=== PATIENT | male | born 1980 ===

== ENCOUNTER 2022-08-06 13:57 | Inpatient (IN) | payer OTHER ==
[2022-08-06 14:46] VITALS: BMI 21.9
[2022-08-06] MEDS ORDERED: ONDANSETRON *ODT* 4 MG TABLET SL PRN (19:08)
[2022-08-06] MEDS ORDERED: LOPERAMIDE HCL 2 MG CAPSULE PO PRN (19:08)
[2022-08-06] MEDS ORDERED: MAGNESIUM HYDROX 2400MG/30ML ORAL SUSPENSION 30 ML CUP PO PRN (19:08)
[2022-08-06] MEDS ORDERED: NALOXONE HCL (KLOXXADO) 8 MG SPRAY NS PRN (19:08)
[2022-08-06] MEDS ORDERED: BENZOCAINE/MENTHOL (CHLORASEPTIC ) LOZENGE MM PRN (19:08)
[2022-08-06] MEDS ORDERED: IBUPROFEN 600 MG TABLET (FP) PO PRN (19:08)
[2022-08-06] MEDS ORDERED: MAG HYDROX/AL HYDROX/SIMETH 30 ML UNIT-DOSE CUP PO PRN (19:08)
[2022-08-06] MEDS ORDERED: DICYCLOMINE HCL 10 MG CAPSULE PO PRN (19:08)
[2022-08-06] MEDS ORDERED: ACETAMINOPHEN 325 MG TABLET (FP) PO PRN ×2 (19:08)
[2022-08-06] MEDS ORDERED: BISMUTH SUBSALICYLATE 524 MG/30 ML PO PRN (19:08)
[2022-08-06] MEDS ORDERED: POLYETHYLENE GLYCOL (HEALTHYLAX) 3350 17 GM PACKET PO PRN (19:08)
[2022-08-06] MEDS ORDERED: chlordiazePOXIDE HCL 25 MG CAPSULE PO PRN (19:08)
[2022-08-06] MEDS ORDERED: IBUPROFEN 400 MG TABLET (FP) PO PRN (19:08)
[2022-08-06] MEDS: INSULIN (LEVEMIR) 100 UNITS/ML UNITS SQ SCH ×2 (20:40→21:19)
[2022-08-06] MEDS ORDERED: INSULIN (LEVEMIR) 100 UNITS/ML UNITS SQ SCH (22:00)
[2022-08-06] MEDS: THIAMINE HCL 100 MG TABLET (FP) PO SCH (22:19)
[2022-08-06] MEDS: MELATONIN 5 MG TABLETS PO SCH (22:19)
[2022-08-06] MEDS: chlordiazePOXIDE HCL 25 MG CAPSULE PO SCH (22:20)
[2022-08-07] MEDS: chlordiazePOXIDE HCL 25 MG CAPSULE PO SCH ×4 (05:51→22:16)
[2022-08-07] MEDS ORDERED: INSULIN SLIDING SCALE (NOVOLOG) 1 VIAL SQ SCH (07:00)
[2022-08-07] MEDS: INSULIN SLIDING SCALE (NOVOLOG) 1 VIAL SQ SCH ×3 (07:03→16:46)
[2022-08-07] MEDS ORDERED: ALBUTEROL SO4 HFA INHALER IH PRN (09:36)
[2022-08-07] MEDS: PRENATAL VITAMINS W/ FOLIC ACID TABLET (FP) PO SCH (10:18)
[2022-08-07] MEDS: hydrOXYzine PAMOATE 25 MG CAPSULE (FP) PO PRN (10:25)
[2022-08-07] MEDS: METHOCARBAMOL 500 MG TABLET PO PRN (10:25)
[2022-08-07] MEDS: LEVOTHYROXINE NA 25 MCG TABLET (FP) PO SCH (10:37)
[2022-08-07 13:16] LABS: HEMATOCRIT 34.9 % (35.4-49); HEMOGLOBIN 11.5 GM/dL (11.7-16.9); MCH 27.8 pg (25.7-33.7); MEAN PLT VOLUME 8.9 fl (7.5-11.1); PLATELET COUNT 269 10^3/uL (134-434); RBC 4.15 M/mm3 (4.00-5.60); RDW 14.6 % (11.9-15.9); WHITE BLOOD COUNT 6.3 K/mm3 (4.0-10.0)
[2022-08-07 13:23] LABS: CALCIUM 9.1 mg/dL (8.5-10.1)
[2022-08-07 13:24] LABS: ALBUMIN 3.6 g/dl (3.4-5.0); BLOOD UREA NITROGEN 12.4 mg/dL (7-18)
[2022-08-07 13:28] LABS: CREATININE 0.9 mg/dL (0.55-1.3)
[2022-08-07 13:29] LABS: BILIRUBIN,TOTAL 0.5 mg/dL (0.2-1); TOT PROT 7.1 g/dl (6.4-8.2)
[2022-08-07 14:49] LABS: HIV INTERPRETATION NEGATIVE (NEGATIVE)
[2022-08-07] MEDS ORDERED: BUPRENORPHINE/NALOXONE 8 MG/2 MG FILM PACKET SL ONE (15:00)
[2022-08-07] MEDS: MELATONIN 5 MG TABLETS PO SCH (22:16)
[2022-08-07] MEDS: THIAMINE HCL 100 MG TABLET (FP) PO SCH (22:16)
[2022-08-07] MEDS: INSULIN (LEVEMIR) 100 UNITS/ML UNITS SQ SCH (22:19)
[2022-08-08] MEDS: chlordiazePOXIDE HCL 25 MG CAPSULE PO SCH ×4 (05:56→22:15)
[2022-08-08] MEDS: INSULIN SLIDING SCALE (NOVOLOG) 1 VIAL SQ SCH ×3 (06:36→16:34)
[2022-08-08] MEDS: LEVOTHYROXINE NA 25 MCG TABLET (FP) PO SCH (06:37)
[2022-08-08] MEDS: PRENATAL VITAMINS W/ FOLIC ACID TABLET (FP) PO SCH (10:26)
[2022-08-08] MEDS: BUPRENORPHINE/NALOXONE 8 MG/2 MG FILM PACKET SL SCH (10:27)
[2022-08-08] MEDS: METHOCARBAMOL 500 MG TABLET PO PRN ×2 (11:23→22:15)
[2022-08-08] MEDS: hydrOXYzine PAMOATE 25 MG CAPSULE (FP) PO PRN ×2 (11:23→22:51)
[2022-08-08] MEDS: INSULIN (LEVEMIR) 100 UNITS/ML UNITS SQ SCH (21:31)
[2022-08-08] MEDS ORDERED: INSULIN (NOVOLOG) ASPART 100 UNITS/ML 10ML VIAL SQ ONE ×2 (21:35→22:01)
[2022-08-08] MEDS: THIAMINE HCL 100 MG TABLET (FP) PO SCH (22:14)
[2022-08-08] MEDS: MELATONIN 5 MG TABLETS PO SCH (22:14)
[2022-08-08] MEDS: NICOTINE POLACRILEX 2 MG GUM BUC PRN (22:17)
[2022-08-08] MEDS: NICOTINE 10 MG CARTRIDGE (INHALER) IH PRN (22:18)
[2022-08-09] MEDS ORDERED: chlordiazePOXIDE HCL 10 MG CAPSULE PO PRN
[2022-08-09] MEDS: chlordiazePOXIDE HCL 10 MG CAPSULE PO SCH ×4 (06:08→22:17)
[2022-08-09] MEDS: LEVOTHYROXINE NA 25 MCG TABLET (FP) PO SCH (06:08)
[2022-08-09] MEDS: INSULIN SLIDING SCALE (NOVOLOG) 1 VIAL SQ SCH ×4 (06:10→21:30)
[2022-08-09] MEDS ORDERED: INSULIN SLIDING SCALE (NOVOLOG) 1 VIAL SQ ONE (07:02)
[2022-08-09] MEDS: hydrOXYzine PAMOATE 25 MG CAPSULE (FP) PO PRN (09:22)
[2022-08-09] MEDS: BUPRENORPHINE/NALOXONE 8 MG/2 MG FILM PACKET SL SCH (10:10)
[2022-08-09] MEDS: PRENATAL VITAMINS W/ FOLIC ACID TABLET (FP) PO SCH (10:10)
[2022-08-09] MEDS: NICOTINE 10 MG CARTRIDGE (INHALER) IH PRN ×2 (10:32→21:22)
[2022-08-09] MEDS: NICOTINE POLACRILEX 2 MG GUM BUC PRN ×2 (10:33→21:44)
[2022-08-09] MEDS: INSULIN (LEVEMIR) 100 UNITS/ML UNITS SQ SCH (21:32)
[2022-08-09] MEDS: MELATONIN 5 MG TABLETS PO SCH (22:18)
[2022-08-09] MEDS: THIAMINE HCL 100 MG TABLET (FP) PO SCH (22:18)
[2022-08-10] MEDS: chlordiazePOXIDE HCL 10 MG CAPSULE PO SCH ×2 (05:38→17:17)
[2022-08-10] MEDS: NICOTINE 10 MG CARTRIDGE (INHALER) IH PRN ×3 (06:00→22:25)
[2022-08-10] MEDS: NICOTINE POLACRILEX 2 MG GUM BUC PRN ×3 (06:01→15:47)
[2022-08-10] MEDS: INSULIN SLIDING SCALE (NOVOLOG) 1 VIAL SQ SCH ×3 (06:19→17:19)
[2022-08-10] MEDS: LEVOTHYROXINE NA 25 MCG TABLET (FP) PO SCH (06:19)
[2022-08-10] MEDS: PRENATAL VITAMINS W/ FOLIC ACID TABLET (FP) PO SCH (10:41)
[2022-08-10] MEDS: BUPRENORPHINE/NALOXONE 8 MG/2 MG FILM PACKET SL SCH (10:41)
[2022-08-10] MEDS: METHOCARBAMOL 500 MG TABLET PO PRN (10:42)
[2022-08-10] MEDS ORDERED: INSULIN (NOVOLOG) ASPART 100 UNITS/ML 10ML VIAL SQ ONE (21:43)
[2022-08-10] MEDS: MELATONIN 5 MG TABLETS PO SCH (22:25)
[2022-08-10] MEDS: THIAMINE HCL 100 MG TABLET (FP) PO SCH (22:25)
[2022-08-10] MEDS: INSULIN (LEVEMIR) 100 UNITS/ML UNITS SQ SCH (22:27)
[2022-08-11] MEDS ORDERED: chlordiazePOXIDE HCL 10 MG CAPSULE PO ONE (05:00)
[2022-08-11] MEDS: LEVOTHYROXINE NA 25 MCG TABLET (FP) PO SCH (06:53)
[2022-08-11] MEDS: INSULIN SLIDING SCALE (NOVOLOG) 1 VIAL SQ SCH ×2 (06:53→11:35)
[2022-08-11] MEDS: PRENATAL VITAMINS W/ FOLIC ACID TABLET (FP) PO SCH (10:25)
[2022-08-11] MEDS: BUPRENORPHINE/NALOXONE 8 MG/2 MG FILM PACKET SL SCH (10:26)
[2022-08-11] MEDS: NICOTINE POLACRILEX 2 MG GUM BUC PRN (10:45)
[2022-08-11] MEDS: NICOTINE 10 MG CARTRIDGE (INHALER) IH PRN (10:47)
[2022-08-11 13:05] VITALS: BP 118/81; PULSE 89; RESP 18; TEMP 96.8
[2022-08-11] MEDS ORDERED: INSULIN (NOVOLOG) ASPART 100 UNITS/ML 10ML VIAL SQ SCH (16:30)
== END 2022-08-11 01:33 | disposition other institution (70) | DRG 773 ==
LOC: YASAS 13:57 → Y3N 19:34
PROVIDERS: ADMIT Allergy & Immunology; ATTEND Surgery
PROC: HZ2ZZZZ Detoxification Services for Substance Abuse Treatment (ICD-10-PCS; principal; 2022-08-06)
DX: F10.230 Alcohol dependence with withdrawal, uncomplicated (principal); F11.20 Opioid dependence, uncomplicated; F14.20 Cocaine dependence, uncomplicated; F17.210 Nicotine dependence, cigarettes, uncomplicated; F31.9 Bipolar disorder, unspecified; F41.9 Anxiety disorder, unspecified; E03.9 Hypothyroidism, unspecified; E10.65 Type 1 diabetes mellitus with hyperglycemia; Z79.4 Long term (current) use of insulin; J45.909 Unspecified asthma, uncomplicated; Z88.1 Allergy status to other antibiotic agents; Z91.013 Allergy to seafood
CPT/HCPCS: 36415; 80053; 82962; 84443; 85027; 86780; 87389; C9803-CS; U0003; U0005

== ENCOUNTER 2022-08-11 13:49 | Inpatient (IN) | payer OTHER ==
[2022-08-11] MEDS ORDERED: POLYETHYLENE GLYCOL (HEALTHYLAX) 3350 17 GM PACKET PO PRN (14:19)
[2022-08-11] MEDS ORDERED: BENZOCAINE/MENTHOL (CHLORASEPTIC ) LOZENGE MM PRN (14:19)
[2022-08-11] MEDS ORDERED: MAGNESIUM HYDROX 2400MG/30ML ORAL SUSPENSION 30 ML CUP PO PRN (14:19)
[2022-08-11] MEDS ORDERED: LOPERAMIDE HCL 2 MG CAPSULE PO PRN (14:19)
[2022-08-11] MEDS ORDERED: P-EPHED 60MG/TRIPROLIDI 2.5MG TABLET PO PRN (14:19)
[2022-08-11] MEDS ORDERED: ACETAMINOPHEN 325 MG TABLET (FP) PO PRN (14:19)
[2022-08-11] MEDS ORDERED: guaiFENesin 200 MG/10 ML 10 ML UNIT-DOSE CUPS PO PRN (14:19)
[2022-08-11] MEDS ORDERED: MAG HYDROX/AL HYDROX/SIMETH 30 ML UNIT-DOSE CUP PO PRN (14:19)
[2022-08-11] MEDS ORDERED: ALBUTEROL SO4 HFA INHALER IH PRN (14:20)
[2022-08-11] MEDS ORDERED: INSULIN (NOVOLOG) ASPART 100 UNITS/ML 10ML VIAL ONE ×2 (16:29→23:01)
[2022-08-11] MEDS ORDERED: INSULIN SLIDING SCALE (NOVOLOG) 1 VIAL SQ SCH (16:30)
[2022-08-11] MEDS ORDERED: INSULIN (NOVOLOG) ASPART 100 UNITS/ML 10ML VIAL SQ SCH (16:30)
[2022-08-11] MEDS: INSULIN SLIDING SCALE (NOVOLOG) 1 VIAL SQ SCH ×2 (16:54→21:07)
[2022-08-11] MEDS: INSULIN (NOVOLOG) ASPART 100 UNITS/ML 10ML VIAL SQ SCH (16:54)
[2022-08-11] MEDS: THIAMINE HCL 100 MG TABLET (FP) PO SCH (21:03)
[2022-08-11] MEDS: MELATONIN 5 MG TABLETS PO SCH (21:03)
[2022-08-11] MEDS: hydrOXYzine PAMOATE 25 MG CAPSULE (FP) PO PRN (21:05)
[2022-08-11] MEDS: INSULIN (LEVEMIR) 100 UNITS/ML UNITS SQ SCH (21:33)
[2022-08-11] MEDS ORDERED: INSULIN (LEVEMIR) 100 UNITS/ML UNITS SQ ONE (23:01)
[2022-08-12] MEDS: LEVOTHYROXINE NA 25 MCG TABLET (FP) PO SCH (06:17)
[2022-08-12] MEDS: INSULIN SLIDING SCALE (NOVOLOG) 1 VIAL SQ SCH ×4 (07:14→21:16)
[2022-08-12] MEDS: INSULIN (NOVOLOG) ASPART 100 UNITS/ML 10ML VIAL SQ SCH ×3 (07:15→18:03)
[2022-08-12] MEDS: PRENATAL VITAMINS W/ FOLIC ACID TABLET (FP) PO SCH (10:07)
[2022-08-12] MEDS: NICOTINE POLACRILEX 2 MG GUM BUC PRN ×2 (10:07→14:36)
[2022-08-12] MEDS: BUPRENORPHINE/NALOXONE 8 MG/2 MG FILM PACKET SL SCH (10:07)
[2022-08-12] MEDS: NICOTINE 7 MG/24 HOURS TOPICAL PATCH TD SCH (10:07)
[2022-08-12] MEDS: NICOTINE 10 MG CARTRIDGE (INHALER) IH PRN (10:08)
[2022-08-12] MEDS ORDERED: INSULIN (NOVOLOG) ASPART 100 UNITS/ML 10ML VIAL ONE (11:53)
[2022-08-12] MEDS: MELATONIN 5 MG TABLETS PO SCH (21:15)
[2022-08-12] MEDS: THIAMINE HCL 100 MG TABLET (FP) PO SCH (21:15)
[2022-08-12] MEDS: INSULIN (LEVEMIR) 100 UNITS/ML UNITS SQ SCH (21:16)
[2022-08-13] MEDS: LEVOTHYROXINE NA 25 MCG TABLET (FP) PO SCH (06:21)
[2022-08-13] MEDS: INSULIN SLIDING SCALE (NOVOLOG) 1 VIAL SQ SCH ×4 (06:22→21:19)
[2022-08-13] MEDS: INSULIN (NOVOLOG) ASPART 100 UNITS/ML 10ML VIAL SQ SCH ×3 (07:17→17:09)
[2022-08-13] MEDS: NICOTINE POLACRILEX 2 MG GUM BUC PRN ×2 (07:20→19:01)
[2022-08-13] MEDS: NICOTINE 10 MG CARTRIDGE (INHALER) IH PRN ×3 (07:20→17:40)
[2022-08-13] MEDS: hydrOXYzine PAMOATE 25 MG CAPSULE (FP) PO PRN ×2 (08:43→21:16)
[2022-08-13] MEDS: PRENATAL VITAMINS W/ FOLIC ACID TABLET (FP) PO SCH (09:53)
[2022-08-13] MEDS: BUPRENORPHINE/NALOXONE 8 MG/2 MG FILM PACKET SL SCH (09:54)
[2022-08-13] MEDS: NICOTINE 7 MG/24 HOURS TOPICAL PATCH TD SCH (09:54)
[2022-08-13] MEDS: IBUPROFEN 400 MG TABLET (FP) PO PRN (10:33)
[2022-08-13] MEDS ORDERED: INSULIN (NOVOLOG) ASPART 100 UNITS/ML 10ML VIAL ONE (16:22)
[2022-08-13] MEDS: MELATONIN 5 MG TABLETS PO SCH (21:16)
[2022-08-13] MEDS: THIAMINE HCL 100 MG TABLET (FP) PO SCH (21:16)
[2022-08-13] MEDS: INSULIN (LEVEMIR) 100 UNITS/ML UNITS SQ SCH (21:18)
[2022-08-13] MEDS ORDERED: INSULIN (LEVEMIR) 100 UNITS/ML UNITS SQ ONE (21:45)
[2022-08-14] MEDS: INSULIN SLIDING SCALE (NOVOLOG) 1 VIAL SQ SCH ×4 (06:21→21:22)
[2022-08-14] MEDS: LEVOTHYROXINE NA 25 MCG TABLET (FP) PO SCH (06:22)
[2022-08-14] MEDS: hydrOXYzine PAMOATE 25 MG CAPSULE (FP) PO PRN ×2 (06:22→21:19)
[2022-08-14] MEDS: INSULIN (NOVOLOG) ASPART 100 UNITS/ML 10ML VIAL SQ SCH ×3 (07:24→16:30)
[2022-08-14] MEDS: PRENATAL VITAMINS W/ FOLIC ACID TABLET (FP) PO SCH (09:06)
[2022-08-14] MEDS: BUPRENORPHINE/NALOXONE 8 MG/2 MG FILM PACKET SL SCH (09:06)
[2022-08-14] MEDS: NICOTINE 7 MG/24 HOURS TOPICAL PATCH TD SCH (09:06)
[2022-08-14] MEDS: NICOTINE 10 MG CARTRIDGE (INHALER) IH PRN (09:06)
[2022-08-14] MEDS ORDERED: NICOTINE 7 MG/24 HOURS TOPICAL PATCH TD PRN (09:13)
[2022-08-14] MEDS: NICOTINE POLACRILEX 2 MG GUM BUC PRN (13:45)
[2022-08-14] MEDS ORDERED: INSULIN (NOVOLOG) ASPART 100 UNITS/ML 10ML VIAL ONE (16:15)
[2022-08-14] MEDS: MELATONIN 5 MG TABLETS PO SCH (21:19)
[2022-08-14] MEDS: THIAMINE HCL 100 MG TABLET (FP) PO SCH (21:19)
[2022-08-14] MEDS: INSULIN (LEVEMIR) 100 UNITS/ML UNITS SQ SCH (21:22)
[2022-08-14] MEDS ORDERED: INSULIN (LEVEMIR) 100 UNITS/ML UNITS SQ ONE (21:51)
[2022-08-15] MEDS: hydrOXYzine PAMOATE 25 MG CAPSULE (FP) PO PRN ×3 (03:58→21:04)
[2022-08-15] MEDS: LEVOTHYROXINE NA 25 MCG TABLET (FP) PO SCH (07:02)
[2022-08-15] MEDS: INSULIN SLIDING SCALE (NOVOLOG) 1 VIAL SQ SCH ×4 (07:03→21:08)
[2022-08-15] MEDS: INSULIN (NOVOLOG) ASPART 100 UNITS/ML 10ML VIAL SQ SCH ×3 (07:03→16:47)
[2022-08-15] MEDS: NICOTINE POLACRILEX 2 MG GUM BUC PRN ×2 (07:05→15:48)
[2022-08-15] MEDS: PRENATAL VITAMINS W/ FOLIC ACID TABLET (FP) PO SCH (09:05)
[2022-08-15] MEDS: NICOTINE 10 MG CARTRIDGE (INHALER) IH PRN ×3 (09:05→21:08)
[2022-08-15] MEDS: BUPRENORPHINE/NALOXONE 8 MG/2 MG FILM PACKET SL SCH (09:05)
[2022-08-15] MEDS ORDERED: ARIPiprazole 10 MG TABLET PO ONE (11:43)
[2022-08-15] MEDS ORDERED: INSULIN (NOVOLOG) ASPART 100 UNITS/ML 10ML VIAL ONE (11:51)
[2022-08-15] MEDS ORDERED: ARIPiprazole 5 MG TABLET ONE (12:34)
[2022-08-15] MEDS: THIAMINE HCL 100 MG TABLET (FP) PO SCH (21:04)
[2022-08-15] MEDS: MELATONIN 5 MG TABLETS PO SCH (21:04)
[2022-08-15] MEDS: INSULIN (LEVEMIR) 100 UNITS/ML UNITS SQ SCH (21:08)
[2022-08-15] MEDS: MIRTAZAPINE 15 MG TABLET (FP) PO SCH (21:09)
[2022-08-15] MEDS ORDERED: INSULIN (LEVEMIR) 100 UNITS/ML UNITS SQ ONE (21:57)
[2022-08-16] MEDS: LEVOTHYROXINE NA 25 MCG TABLET (FP) PO SCH (06:32)
[2022-08-16] MEDS: INSULIN SLIDING SCALE (NOVOLOG) 1 VIAL SQ SCH ×4 (06:41→21:04)
[2022-08-16] MEDS: INSULIN (NOVOLOG) ASPART 100 UNITS/ML 10ML VIAL SQ SCH ×3 (07:51→17:23)
[2022-08-16] MEDS ORDERED: INSULIN (NOVOLOG) ASPART 100 UNITS/ML 10ML VIAL ONE ×3 (07:53→13:27)
[2022-08-16] MEDS: ARIPiprazole 10 MG TABLET PO SCH (09:53)
[2022-08-16] MEDS: BUPRENORPHINE/NALOXONE 8 MG/2 MG FILM PACKET SL SCH (09:53)
[2022-08-16] MEDS: PRENATAL VITAMINS W/ FOLIC ACID TABLET (FP) PO SCH (09:53)
[2022-08-16] MEDS: hydrOXYzine PAMOATE 25 MG CAPSULE (FP) PO PRN ×2 (09:53→21:03)
[2022-08-16] MEDS: NICOTINE 10 MG CARTRIDGE (INHALER) IH PRN ×3 (14:02→21:04)
[2022-08-16] MEDS: INSULIN (LEVEMIR) 100 UNITS/ML UNITS SQ SCH (21:02)
[2022-08-16] MEDS: THIAMINE HCL 100 MG TABLET (FP) PO SCH (21:03)
[2022-08-16] MEDS: MELATONIN 5 MG TABLETS PO SCH (21:03)
[2022-08-16] MEDS: MIRTAZAPINE 15 MG TABLET (FP) PO SCH (21:04)
[2022-08-17] MEDS: LEVOTHYROXINE NA 25 MCG TABLET (FP) PO SCH (06:38)
[2022-08-17] MEDS: NICOTINE 10 MG CARTRIDGE (INHALER) IH PRN ×2 (06:39→15:31)
[2022-08-17] MEDS: INSULIN SLIDING SCALE (NOVOLOG) 1 VIAL SQ SCH ×4 (07:12→21:34)
[2022-08-17] MEDS: INSULIN (NOVOLOG) ASPART 100 UNITS/ML 10ML VIAL SQ SCH ×3 (07:12→17:02)
[2022-08-17] MEDS ORDERED: INSULIN (NOVOLOG) ASPART 100 UNITS/ML 10ML VIAL ONE ×2 (08:48→12:57)
[2022-08-17] MEDS ORDERED: ARIPiprazole 5 MG TABLET ONE (08:48)
[2022-08-17] MEDS: BUPRENORPHINE/NALOXONE 8 MG/2 MG FILM PACKET SL SCH (09:25)
[2022-08-17] MEDS: hydrOXYzine PAMOATE 25 MG CAPSULE (FP) PO PRN ×2 (09:25→21:32)
[2022-08-17] MEDS: PRENATAL VITAMINS W/ FOLIC ACID TABLET (FP) PO SCH (09:25)
[2022-08-17] MEDS: ARIPiprazole 10 MG TABLET PO SCH (09:26)
[2022-08-17] MEDS: THIAMINE HCL 100 MG TABLET (FP) PO SCH (21:32)
[2022-08-17] MEDS: INSULIN (LEVEMIR) 100 UNITS/ML UNITS SQ SCH (21:32)
[2022-08-17] MEDS: MELATONIN 5 MG TABLETS PO SCH (21:32)
[2022-08-17] MEDS: MIRTAZAPINE 15 MG TABLET (FP) PO SCH (21:34)
[2022-08-18] MEDS: LEVOTHYROXINE NA 25 MCG TABLET (FP) PO SCH (06:28)
[2022-08-18] MEDS: hydrOXYzine PAMOATE 25 MG CAPSULE (FP) PO PRN ×3 (06:29→21:34)
[2022-08-18] MEDS ORDERED: INSULIN (NOVOLOG) ASPART 100 UNITS/ML 10ML VIAL ONE ×3 (06:31→21:43)
[2022-08-18] MEDS: INSULIN SLIDING SCALE (NOVOLOG) 1 VIAL SQ SCH ×4 (06:31→21:34)
[2022-08-18] MEDS: INSULIN (NOVOLOG) ASPART 100 UNITS/ML 10ML VIAL SQ SCH ×3 (07:01→16:37)
[2022-08-18] MEDS: NICOTINE 10 MG CARTRIDGE (INHALER) IH PRN ×3 (07:35→19:33)
[2022-08-18] MEDS: PRENATAL VITAMINS W/ FOLIC ACID TABLET (FP) PO SCH (08:59)
[2022-08-18] MEDS: ARIPiprazole 10 MG TABLET PO SCH (08:59)
[2022-08-18] MEDS: BUPRENORPHINE/NALOXONE 8 MG/2 MG FILM PACKET SL SCH (08:59)
[2022-08-18] MEDS: IBUPROFEN 400 MG TABLET (FP) PO PRN (10:08)
[2022-08-18] MEDS: NICOTINE POLACRILEX 2 MG GUM BUC PRN (15:40)
[2022-08-18] MEDS: MELATONIN 5 MG TABLETS PO SCH (21:31)
[2022-08-18] MEDS: THIAMINE HCL 100 MG TABLET (FP) PO SCH (21:31)
[2022-08-18] MEDS: INSULIN (LEVEMIR) 100 UNITS/ML UNITS SQ SCH (21:33)
[2022-08-18] MEDS: MIRTAZAPINE 15 MG TABLET (FP) PO SCH (21:40)
[2022-08-18] MEDS ORDERED: INSULIN (LEVEMIR) 100 UNITS/ML UNITS SQ ONE (21:43)
[2022-08-19] MEDS: LEVOTHYROXINE NA 25 MCG TABLET (FP) PO SCH (06:22)
[2022-08-19] MEDS: INSULIN SLIDING SCALE (NOVOLOG) 1 VIAL SQ SCH ×5 (06:28→21:57)
[2022-08-19] MEDS: hydrOXYzine PAMOATE 25 MG CAPSULE (FP) PO PRN ×2 (06:47→21:52)
[2022-08-19] MEDS: INSULIN (NOVOLOG) ASPART 100 UNITS/ML 10ML VIAL SQ SCH ×4 (07:35→16:42)
[2022-08-19] MEDS ORDERED: INSULIN (NOVOLOG) ASPART 100 UNITS/ML 10ML VIAL ONE ×2 (07:43→16:39)
[2022-08-19] MEDS ORDERED: ARIPiprazole 5 MG TABLET ONE (07:54)
[2022-08-19] MEDS: NICOTINE 10 MG CARTRIDGE (INHALER) IH PRN ×2 (08:50→20:12)
[2022-08-19] MEDS: ARIPiprazole 10 MG TABLET PO SCH (10:06)
[2022-08-19] MEDS: IBUPROFEN 400 MG TABLET (FP) PO PRN (10:08)
[2022-08-19] MEDS: PRENATAL VITAMINS W/ FOLIC ACID TABLET (FP) PO SCH (10:08)
[2022-08-19] MEDS: BUPRENORPHINE/NALOXONE 8 MG/2 MG FILM PACKET SL SCH (10:09)
[2022-08-19] MEDS: THIAMINE HCL 100 MG TABLET (FP) PO SCH (21:52)
[2022-08-19] MEDS: MIRTAZAPINE 15 MG TABLET (FP) PO SCH (21:53)
[2022-08-19] MEDS: MELATONIN 5 MG TABLETS PO SCH (21:53)
[2022-08-19] MEDS: INSULIN (LEVEMIR) 100 UNITS/ML UNITS SQ SCH (21:55)
[2022-08-20] MEDS: LEVOTHYROXINE NA 25 MCG TABLET (FP) PO SCH (06:13)
[2022-08-20] MEDS: INSULIN SLIDING SCALE (NOVOLOG) 1 VIAL SQ SCH ×4 (06:14→21:36)
[2022-08-20] MEDS: hydrOXYzine PAMOATE 25 MG CAPSULE (FP) PO PRN ×2 (06:48→21:33)
[2022-08-20] MEDS: INSULIN (NOVOLOG) ASPART 100 UNITS/ML 10ML VIAL SQ SCH ×4 (07:01→16:53)
[2022-08-20] MEDS: ARIPiprazole 10 MG TABLET PO SCH (10:03)
[2022-08-20] MEDS: BUPRENORPHINE/NALOXONE 8 MG/2 MG FILM PACKET SL SCH (10:03)
[2022-08-20] MEDS: PRENATAL VITAMINS W/ FOLIC ACID TABLET (FP) PO SCH (10:03)
[2022-08-20] MEDS: NICOTINE 10 MG CARTRIDGE (INHALER) IH PRN ×3 (11:40→21:36)
[2022-08-20] MEDS ORDERED: INSULIN (NOVOLOG) ASPART 100 UNITS/ML 10ML VIAL ONE ×3 (16:28→22:02)
[2022-08-20] MEDS: THIAMINE HCL 100 MG TABLET (FP) PO SCH (21:31)
[2022-08-20] MEDS: MIRTAZAPINE 15 MG TABLET (FP) PO SCH (21:33)
[2022-08-20] MEDS: MELATONIN 5 MG TABLETS PO SCH (21:34)
[2022-08-20] MEDS: INSULIN (LEVEMIR) 100 UNITS/ML UNITS SQ SCH (21:35)
[2022-08-21] MEDS: hydrOXYzine PAMOATE 25 MG CAPSULE (FP) PO PRN ×3 (06:14→21:25)
[2022-08-21] MEDS: NICOTINE 10 MG CARTRIDGE (INHALER) IH PRN ×3 (06:14→16:36)
[2022-08-21] MEDS: LEVOTHYROXINE NA 25 MCG TABLET (FP) PO SCH (06:14)
[2022-08-21] MEDS: INSULIN (NOVOLOG) ASPART 100 UNITS/ML 10ML VIAL SQ SCH ×3 (07:39→16:35)
[2022-08-21] MEDS: INSULIN SLIDING SCALE (NOVOLOG) 1 VIAL SQ SCH ×4 (07:39→21:27)
[2022-08-21] MEDS: ARIPiprazole 10 MG TABLET PO SCH (09:42)
[2022-08-21] MEDS: PRENATAL VITAMINS W/ FOLIC ACID TABLET (FP) PO SCH (09:42)
[2022-08-21] MEDS: BUPRENORPHINE/NALOXONE 4 MG/1 MG FILM PACKET SL SCH ×2 (09:42→21:24)
[2022-08-21] MEDS ORDERED: INSULIN (NOVOLOG) ASPART 100 UNITS/ML 10ML VIAL ONE ×3 (11:59→21:46)
[2022-08-21] MEDS: NICOTINE POLACRILEX 2 MG GUM BUC PRN (13:28)
[2022-08-21 14:19] LABS: HEMATOCRIT 36.8 % (35.4-49); HEMOGLOBIN 11.9 GM/dL (11.7-16.9); MCH 26.4 pg (25.7-33.7); MCHC 32.4 g/dl (32.0-35.9); MEAN CELL VOLUME 81.4 fl (80-96); PLATELET COUNT 272 10^3/uL (134-434); RBC 4.52 M/mm3 (4.00-5.60); RDW 14.6 % (11.9-15.9); WHITE BLOOD COUNT 8.5 K/mm3 (4.0-10.0)
[2022-08-21 14:28] LABS: INR 0.95 (0.83-1.09)
[2022-08-21 14:53] LABS: ALBUMIN 3.7 g/dl (3.4-5.0); BLOOD UREA NITROGEN 21.1 mg/dL (7-18); CALCIUM 9.2 mg/dL (8.5-10.1)
[2022-08-21 14:57] LABS: BILIRUBIN,TOTAL 0.4 mg/dL (0.2-1); CREATININE 0.8 mg/dL (0.55-1.3)
[2022-08-21 14:58] LABS: TOT PROT 7.7 g/dl (6.4-8.2)
[2022-08-21] MEDS: THIAMINE HCL 100 MG TABLET (FP) PO SCH (21:23)
[2022-08-21] MEDS: MELATONIN 5 MG TABLETS PO SCH (21:23)
[2022-08-21] MEDS: MIRTAZAPINE 15 MG TABLET (FP) PO SCH (21:24)
[2022-08-21] MEDS: INSULIN (LEVEMIR) 100 UNITS/ML UNITS SQ SCH (21:28)
[2022-08-21] MEDS ORDERED: INSULIN (LEVEMIR) 100 UNITS/ML UNITS SQ ONE (21:46)
[2022-08-22] MEDS: hydrOXYzine PAMOATE 25 MG CAPSULE (FP) PO PRN ×2 (03:57→21:15)
[2022-08-22] MEDS: LEVOTHYROXINE NA 25 MCG TABLET (FP) PO SCH (06:39)
[2022-08-22] MEDS: INSULIN SLIDING SCALE (NOVOLOG) 1 VIAL SQ SCH ×4 (06:40→21:18)
[2022-08-22] MEDS: INSULIN (NOVOLOG) ASPART 100 UNITS/ML 10ML VIAL SQ SCH ×3 (07:45→16:40)
[2022-08-22] MEDS ORDERED: INSULIN (NOVOLOG) ASPART 100 UNITS/ML 10ML VIAL ONE ×2 (07:46→22:18)
[2022-08-22] MEDS ORDERED: ARIPiprazole 5 MG TABLET ONE (08:36)
[2022-08-22] MEDS: ARIPiprazole 10 MG TABLET PO SCH (10:09)
[2022-08-22] MEDS: PRENATAL VITAMINS W/ FOLIC ACID TABLET (FP) PO SCH (10:10)
[2022-08-22] MEDS: BUPRENORPHINE/NALOXONE 4 MG/1 MG FILM PACKET SL SCH ×2 (10:11→21:18)
[2022-08-22] MEDS: IBUPROFEN 400 MG TABLET (FP) PO PRN (10:13)
[2022-08-22] MEDS: NICOTINE POLACRILEX 2 MG GUM BUC PRN ×2 (11:09→21:18)
[2022-08-22] MEDS: NICOTINE 10 MG CARTRIDGE (INHALER) IH PRN (15:41)
[2022-08-22] MEDS: MELATONIN 5 MG TABLETS PO SCH (21:14)
[2022-08-22] MEDS: THIAMINE HCL 100 MG TABLET (FP) PO SCH (21:14)
[2022-08-22] MEDS: MIRTAZAPINE 15 MG TABLET (FP) PO SCH (21:15)
[2022-08-22] MEDS: INSULIN (LEVEMIR) 100 UNITS/ML UNITS SQ SCH (21:16)
[2022-08-22] MEDS ORDERED: INSULIN (LEVEMIR) 100 UNITS/ML UNITS SQ ONE (22:18)
[2022-08-23] MEDS: hydrOXYzine PAMOATE 25 MG CAPSULE (FP) PO PRN ×2 (06:23→21:30)
[2022-08-23] MEDS: LEVOTHYROXINE NA 25 MCG TABLET (FP) PO SCH (06:23)
[2022-08-23] MEDS: INSULIN SLIDING SCALE (NOVOLOG) 1 VIAL SQ SCH ×4 (07:02→21:33)
[2022-08-23] MEDS: INSULIN (NOVOLOG) ASPART 100 UNITS/ML 10ML VIAL SQ SCH ×3 (07:02→16:43)
[2022-08-23] MEDS ORDERED: ARIPiprazole 5 MG TABLET ONE (08:15)
[2022-08-23] MEDS: NICOTINE POLACRILEX 2 MG GUM BUC PRN (08:54)
[2022-08-23] MEDS: PRENATAL VITAMINS W/ FOLIC ACID TABLET (FP) PO SCH (09:56)
[2022-08-23] MEDS: ARIPiprazole 10 MG TABLET PO SCH (09:56)
[2022-08-23] MEDS: BUPRENORPHINE/NALOXONE 4 MG/1 MG FILM PACKET SL SCH ×2 (09:56→21:34)
[2022-08-23] MEDS: NICOTINE 10 MG CARTRIDGE (INHALER) IH PRN ×2 (10:53→16:41)
[2022-08-23] MEDS ORDERED: INSULIN (NOVOLOG) ASPART 100 UNITS/ML 10ML VIAL ONE ×2 (12:02→21:37)
[2022-08-23] MEDS: THIAMINE HCL 100 MG TABLET (FP) PO SCH (21:30)
[2022-08-23] MEDS: MELATONIN 5 MG TABLETS PO SCH (21:30)
[2022-08-23] MEDS: INSULIN (LEVEMIR) 100 UNITS/ML UNITS SQ SCH (21:33)
[2022-08-23] MEDS: MIRTAZAPINE 15 MG TABLET (FP) PO SCH (21:34)
[2022-08-23] MEDS ORDERED: INSULIN (LEVEMIR) 100 UNITS/ML UNITS SQ ONE (21:38)
[2022-08-24] MEDS: hydrOXYzine PAMOATE 25 MG CAPSULE (FP) PO PRN ×2 (06:53→21:32)
[2022-08-24] MEDS: LEVOTHYROXINE NA 25 MCG TABLET (FP) PO SCH (06:53)
[2022-08-24] MEDS: INSULIN SLIDING SCALE (NOVOLOG) 1 VIAL SQ SCH ×4 (07:07→21:31)
[2022-08-24] MEDS: INSULIN (NOVOLOG) ASPART 100 UNITS/ML 10ML VIAL SQ SCH ×3 (07:07→16:52)
[2022-08-24] MEDS: ARIPiprazole 10 MG TABLET PO SCH (09:57)
[2022-08-24] MEDS: PRENATAL VITAMINS W/ FOLIC ACID TABLET (FP) PO SCH (09:57)
[2022-08-24] MEDS: BUPRENORPHINE/NALOXONE 4 MG/1 MG FILM PACKET SL SCH ×2 (09:57→21:34)
[2022-08-24] MEDS: NICOTINE 10 MG CARTRIDGE (INHALER) IH PRN ×2 (09:58→15:10)
[2022-08-24] MEDS ORDERED: INSULIN (NOVOLOG) ASPART 100 UNITS/ML 10ML VIAL ONE ×2 (16:44→21:42)
[2022-08-24] MEDS: MELATONIN 5 MG TABLETS PO SCH (21:29)
[2022-08-24] MEDS: THIAMINE HCL 100 MG TABLET (FP) PO SCH (21:29)
[2022-08-24] MEDS: INSULIN (LEVEMIR) 100 UNITS/ML UNITS SQ SCH (21:31)
[2022-08-24] MEDS: MIRTAZAPINE 15 MG TABLET (FP) PO SCH (21:34)
[2022-08-24] MEDS ORDERED: INSULIN (LEVEMIR) 100 UNITS/ML UNITS SQ ONE (21:43)
[2022-08-25] MEDS: LEVOTHYROXINE NA 25 MCG TABLET (FP) PO SCH (06:12)
[2022-08-25] MEDS: hydrOXYzine PAMOATE 25 MG CAPSULE (FP) PO PRN ×2 (06:13→21:35)
[2022-08-25] MEDS: INSULIN (NOVOLOG) ASPART 100 UNITS/ML 10ML VIAL SQ SCH ×3 (07:46→16:29)
[2022-08-25] MEDS: INSULIN SLIDING SCALE (NOVOLOG) 1 VIAL SQ SCH ×4 (07:46→21:37)
[2022-08-25] MEDS: NICOTINE 10 MG CARTRIDGE (INHALER) IH PRN ×4 (08:30→21:37)
[2022-08-25] MEDS: PRENATAL VITAMINS W/ FOLIC ACID TABLET (FP) PO SCH (09:37)
[2022-08-25] MEDS: BUPRENORPHINE/NALOXONE 4 MG/1 MG FILM PACKET SL SCH ×2 (09:37→21:37)
[2022-08-25] MEDS: ARIPiprazole 10 MG TABLET PO SCH (09:37)
[2022-08-25] MEDS: NICOTINE POLACRILEX 2 MG GUM BUC PRN (10:42)
[2022-08-25] MEDS ORDERED: INSULIN (NOVOLOG) ASPART 100 UNITS/ML 10ML VIAL ONE ×3 (11:56→21:47)
[2022-08-25] MEDS: INSULIN (LEVEMIR) 100 UNITS/ML UNITS SQ SCH (21:35)
[2022-08-25] MEDS: THIAMINE HCL 100 MG TABLET (FP) PO SCH (21:35)
[2022-08-25] MEDS: MELATONIN 5 MG TABLETS PO SCH (21:35)
[2022-08-25] MEDS: MIRTAZAPINE 15 MG TABLET (FP) PO SCH (21:37)
[2022-08-25] MEDS ORDERED: INSULIN (LEVEMIR) 100 UNITS/ML UNITS SQ ONE (21:47)
[2022-08-26] MEDS: hydrOXYzine PAMOATE 25 MG CAPSULE (FP) PO PRN (06:18)
[2022-08-26] MEDS: LEVOTHYROXINE NA 25 MCG TABLET (FP) PO SCH (06:18)
[2022-08-26] MEDS: NICOTINE 10 MG CARTRIDGE (INHALER) IH PRN ×2 (06:19→12:00)
[2022-08-26] MEDS: INSULIN SLIDING SCALE (NOVOLOG) 1 VIAL SQ SCH ×4 (06:27→21:52)
[2022-08-26] MEDS: INSULIN (NOVOLOG) ASPART 100 UNITS/ML 10ML VIAL SQ SCH ×3 (07:22→17:33)
[2022-08-26] MEDS ORDERED: ARIPiprazole 5 MG TABLET ONE (08:38)
[2022-08-26] MEDS: BUPRENORPHINE/NALOXONE 4 MG/1 MG FILM PACKET SL SCH ×2 (10:25→21:52)
[2022-08-26] MEDS: ARIPiprazole 10 MG TABLET PO SCH (10:26)
[2022-08-26] MEDS: PRENATAL VITAMINS W/ FOLIC ACID TABLET (FP) PO SCH (10:26)
[2022-08-26] MEDS ORDERED: INSULIN (NOVOLOG) ASPART 100 UNITS/ML 10ML VIAL ONE ×2 (11:59→16:36)
[2022-08-26] MEDS: MELATONIN 5 MG TABLETS PO SCH (21:49)
[2022-08-26] MEDS: THIAMINE HCL 100 MG TABLET (FP) PO SCH (21:52)
[2022-08-26] MEDS: INSULIN (LEVEMIR) 100 UNITS/ML UNITS SQ SCH (21:52)
[2022-08-26] MEDS: MIRTAZAPINE 15 MG TABLET (FP) PO SCH (21:52)
[2022-08-27] MEDS: LEVOTHYROXINE NA 25 MCG TABLET (FP) PO SCH (06:15)
[2022-08-27] MEDS: hydrOXYzine PAMOATE 25 MG CAPSULE (FP) PO PRN ×3 (06:15→21:27)
[2022-08-27] MEDS: NICOTINE 10 MG CARTRIDGE (INHALER) IH PRN ×4 (06:16→21:30)
[2022-08-27] MEDS: INSULIN (NOVOLOG) ASPART 100 UNITS/ML 10ML VIAL SQ SCH ×3 (07:21→16:40)
[2022-08-27] MEDS: INSULIN SLIDING SCALE (NOVOLOG) 1 VIAL SQ SCH ×4 (07:21→21:31)
[2022-08-27] MEDS ORDERED: ARIPiprazole 5 MG TABLET ONE (08:44)
[2022-08-27] MEDS: BUPRENORPHINE/NALOXONE 4 MG/1 MG FILM PACKET SL SCH (10:00)
[2022-08-27] MEDS: ARIPiprazole 10 MG TABLET PO SCH (10:01)
[2022-08-27] MEDS: PRENATAL VITAMINS W/ FOLIC ACID TABLET (FP) PO SCH (10:01)
[2022-08-27] MEDS ORDERED: INSULIN (NOVOLOG) ASPART 100 UNITS/ML 10ML VIAL ONE ×2 (16:17→23:16)
[2022-08-27] MEDS: THIAMINE HCL 100 MG TABLET (FP) PO SCH (21:26)
[2022-08-27] MEDS: MELATONIN 5 MG TABLETS PO SCH (21:26)
[2022-08-27] MEDS: INSULIN (LEVEMIR) 100 UNITS/ML UNITS SQ SCH (21:27)
[2022-08-27] MEDS: MIRTAZAPINE 15 MG TABLET (FP) PO SCH (21:27)
[2022-08-27] MEDS ORDERED: INSULIN (LEVEMIR) 100 UNITS/ML UNITS SQ ONE (23:16)
[2022-08-28] MEDS: LEVOTHYROXINE NA 25 MCG TABLET (FP) PO SCH (06:10)
[2022-08-28] MEDS: hydrOXYzine PAMOATE 25 MG CAPSULE (FP) PO PRN ×3 (06:10→21:08)
[2022-08-28] MEDS: NICOTINE 10 MG CARTRIDGE (INHALER) IH PRN ×3 (06:11→19:14)
[2022-08-28] MEDS: INSULIN (NOVOLOG) ASPART 100 UNITS/ML 10ML VIAL SQ SCH ×3 (07:02→16:58)
[2022-08-28] MEDS: INSULIN SLIDING SCALE (NOVOLOG) 1 VIAL SQ SCH ×4 (07:02→21:04)
[2022-08-28] MEDS ORDERED: ARIPiprazole 5 MG TABLET ONE (08:42)
[2022-08-28] MEDS: BUPRENORPHINE/NALOXONE 4 MG/1 MG FILM PACKET SL SCH (09:31)
[2022-08-28] MEDS: ARIPiprazole 10 MG TABLET PO SCH (09:31)
[2022-08-28] MEDS: PRENATAL VITAMINS W/ FOLIC ACID TABLET (FP) PO SCH (09:32)
[2022-08-28] MEDS: INSULIN (LEVEMIR) 100 UNITS/ML UNITS SQ SCH (21:05)
[2022-08-28] MEDS: THIAMINE HCL 100 MG TABLET (FP) PO SCH (21:07)
[2022-08-28] MEDS: MELATONIN 5 MG TABLETS PO SCH (21:07)
[2022-08-28] MEDS: MIRTAZAPINE 15 MG TABLET (FP) PO SCH (21:07)
[2022-08-28] MEDS ORDERED: INSULIN (NOVOLOG) ASPART 100 UNITS/ML 10ML VIAL ONE (21:45)
[2022-08-29] MEDS: LEVOTHYROXINE NA 25 MCG TABLET (FP) PO SCH (07:55)
[2022-08-29] MEDS: INSULIN SLIDING SCALE (NOVOLOG) 1 VIAL SQ SCH ×5 (07:56→21:49)
[2022-08-29] MEDS: hydrOXYzine PAMOATE 25 MG CAPSULE (FP) PO PRN (07:56)
[2022-08-29] MEDS: INSULIN (NOVOLOG) ASPART 100 UNITS/ML 10ML VIAL SQ SCH ×4 (07:57→16:48)
[2022-08-29] MEDS ORDERED: INSULIN (NOVOLOG) ASPART 100 UNITS/ML 10ML VIAL ONE ×3 (08:39→16:37)
[2022-08-29] MEDS ORDERED: ARIPiprazole 5 MG TABLET ONE (08:49)
[2022-08-29] MEDS: BUPRENORPHINE/NALOXONE 4 MG/1 MG FILM PACKET SL SCH (10:17)
[2022-08-29] MEDS: ARIPiprazole 10 MG TABLET PO SCH (10:18)
[2022-08-29] MEDS: PRENATAL VITAMINS W/ FOLIC ACID TABLET (FP) PO SCH (10:18)
[2022-08-29] MEDS: NICOTINE POLACRILEX 2 MG GUM BUC PRN (10:43)
[2022-08-29] MEDS: NICOTINE 10 MG CARTRIDGE (INHALER) IH PRN ×2 (12:02→21:49)
[2022-08-29] MEDS: INSULIN (LEVEMIR) 100 UNITS/ML UNITS SQ SCH (21:48)
[2022-08-29] MEDS: MELATONIN 5 MG TABLETS PO SCH (21:48)
[2022-08-29] MEDS: MIRTAZAPINE 15 MG TABLET (FP) PO SCH (21:49)
[2022-08-29] MEDS: THIAMINE HCL 100 MG TABLET (FP) PO SCH (21:49)
[2022-08-30] MEDS: LEVOTHYROXINE NA 25 MCG TABLET (FP) PO SCH (06:51)
[2022-08-30] MEDS: hydrOXYzine PAMOATE 25 MG CAPSULE (FP) PO PRN ×2 (06:52→21:33)
[2022-08-30] MEDS: INSULIN (NOVOLOG) ASPART 100 UNITS/ML 10ML VIAL SQ SCH ×3 (08:09→17:14)
[2022-08-30] MEDS: INSULIN SLIDING SCALE (NOVOLOG) 1 VIAL SQ SCH ×4 (08:10→21:36)
[2022-08-30] MEDS ORDERED: ARIPiprazole 5 MG TABLET ONE (09:15)
[2022-08-30] MEDS: PRENATAL VITAMINS W/ FOLIC ACID TABLET (FP) PO SCH (10:13)
[2022-08-30] MEDS: BUPRENORPHINE/NALOXONE 4 MG/1 MG FILM PACKET SL SCH (10:13)
[2022-08-30] MEDS: ARIPiprazole 10 MG TABLET PO SCH (10:13)
[2022-08-30] MEDS: NICOTINE 10 MG CARTRIDGE (INHALER) IH PRN ×2 (12:00→21:35)
[2022-08-30] MEDS ORDERED: INSULIN (NOVOLOG) ASPART 100 UNITS/ML 10ML VIAL ONE ×2 (12:00→16:45)
[2022-08-30] MEDS: NICOTINE POLACRILEX 2 MG GUM BUC PRN ×2 (12:24→17:15)
[2022-08-30] MEDS: MIRTAZAPINE 15 MG TABLET (FP) PO SCH (21:32)
[2022-08-30] MEDS: THIAMINE HCL 100 MG TABLET (FP) PO SCH (21:33)
[2022-08-30] MEDS: MELATONIN 5 MG TABLETS PO SCH (21:33)
[2022-08-30] MEDS: INSULIN (LEVEMIR) 100 UNITS/ML UNITS SQ SCH (21:36)
[2022-08-31] MEDS: LEVOTHYROXINE NA 25 MCG TABLET (FP) PO SCH (06:24)
[2022-08-31] MEDS: hydrOXYzine PAMOATE 25 MG CAPSULE (FP) PO PRN ×2 (06:25→21:34)
[2022-08-31] MEDS: NICOTINE 10 MG CARTRIDGE (INHALER) IH PRN ×3 (06:25→21:37)
[2022-08-31] MEDS: INSULIN SLIDING SCALE (NOVOLOG) 1 VIAL SQ SCH ×4 (06:49→21:34)
[2022-08-31] MEDS: INSULIN (NOVOLOG) ASPART 100 UNITS/ML 10ML VIAL SQ SCH ×3 (08:55→16:57)
[2022-08-31] MEDS ORDERED: ARIPiprazole 5 MG TABLET ONE (09:01)
[2022-08-31] MEDS: BUPRENORPHINE/NALOXONE 4 MG/1 MG FILM PACKET SL SCH (10:10)
[2022-08-31] MEDS: ARIPiprazole 10 MG TABLET PO SCH (10:10)
[2022-08-31] MEDS: PRENATAL VITAMINS W/ FOLIC ACID TABLET (FP) PO SCH (10:10)
[2022-08-31] MEDS: NICOTINE POLACRILEX 2 MG GUM BUC PRN (10:55)
[2022-08-31] MEDS ORDERED: INSULIN (NOVOLOG) ASPART 100 UNITS/ML 10ML VIAL ONE ×2 (11:54→16:46)
[2022-08-31] MEDS: MIRTAZAPINE 15 MG TABLET (FP) PO SCH (21:34)
[2022-08-31] MEDS: THIAMINE HCL 100 MG TABLET (FP) PO SCH (21:34)
[2022-08-31] MEDS: INSULIN (LEVEMIR) 100 UNITS/ML UNITS SQ SCH (21:34)
[2022-08-31] MEDS: MELATONIN 5 MG TABLETS PO SCH (21:34)
[2022-09-01] MEDS: hydrOXYzine PAMOATE 25 MG CAPSULE (FP) PO PRN ×2 (06:10→21:48)
[2022-09-01] MEDS: LEVOTHYROXINE NA 25 MCG TABLET (FP) PO SCH (06:10)
[2022-09-01] MEDS: NICOTINE 10 MG CARTRIDGE (INHALER) IH PRN ×4 (06:11→21:47)
[2022-09-01] MEDS: INSULIN SLIDING SCALE (NOVOLOG) 1 VIAL SQ SCH ×4 (06:24→21:45)
[2022-09-01] MEDS: INSULIN (NOVOLOG) ASPART 100 UNITS/ML 10ML VIAL SQ SCH ×3 (07:04→16:46)
[2022-09-01] MEDS ORDERED: ARIPiprazole 5 MG TABLET ONE (08:46)
[2022-09-01] MEDS: PRENATAL VITAMINS W/ FOLIC ACID TABLET (FP) PO SCH (10:07)
[2022-09-01] MEDS: BUPRENORPHINE/NALOXONE 4 MG/1 MG FILM PACKET SL SCH (10:07)
[2022-09-01] MEDS: ARIPiprazole 10 MG TABLET PO SCH (10:07)
[2022-09-01] MEDS: IBUPROFEN 400 MG TABLET (FP) PO PRN (11:00)
[2022-09-01] MEDS: INSULIN (LEVEMIR) 100 UNITS/ML UNITS SQ SCH (21:44)
[2022-09-01] MEDS: THIAMINE HCL 100 MG TABLET (FP) PO SCH (21:45)
[2022-09-01] MEDS: MELATONIN 5 MG TABLETS PO SCH (21:45)
[2022-09-01] MEDS: MIRTAZAPINE 15 MG TABLET (FP) PO SCH (21:45)
[2022-09-01] MEDS ORDERED: INSULIN (NOVOLOG) ASPART 100 UNITS/ML 10ML VIAL ONE (22:04)
[2022-09-02] MEDS: LEVOTHYROXINE NA 25 MCG TABLET (FP) PO SCH (06:07)
[2022-09-02] MEDS: hydrOXYzine PAMOATE 25 MG CAPSULE (FP) PO PRN ×2 (06:07→22:00)
[2022-09-02] MEDS: NICOTINE 10 MG CARTRIDGE (INHALER) IH PRN ×2 (06:08→11:00)
[2022-09-02] MEDS: INSULIN SLIDING SCALE (NOVOLOG) 1 VIAL SQ SCH ×4 (07:04→21:59)
[2022-09-02] MEDS: INSULIN (NOVOLOG) ASPART 100 UNITS/ML 10ML VIAL SQ SCH ×3 (07:04→16:46)
[2022-09-02] MEDS ORDERED: ARIPiprazole 5 MG TABLET ONE (08:47)
[2022-09-02] MEDS: BUPRENORPHINE/NALOXONE 4 MG/1 MG FILM PACKET SL SCH (10:26)
[2022-09-02] MEDS: PRENATAL VITAMINS W/ FOLIC ACID TABLET (FP) PO SCH (10:27)
[2022-09-02] MEDS: ARIPiprazole 10 MG TABLET PO SCH (10:27)
[2022-09-02] MEDS: NICOTINE POLACRILEX 2 MG GUM BUC PRN (11:00)
[2022-09-02] MEDS ORDERED: INSULIN (NOVOLOG) ASPART 100 UNITS/ML 10ML VIAL ONE (16:29)
[2022-09-02] MEDS: MELATONIN 5 MG TABLETS PO SCH (21:57)
[2022-09-02] MEDS: INSULIN (LEVEMIR) 100 UNITS/ML UNITS SQ SCH (21:57)
[2022-09-02] MEDS: THIAMINE HCL 100 MG TABLET (FP) PO SCH (22:00)
[2022-09-02] MEDS: MIRTAZAPINE 15 MG TABLET (FP) PO SCH (22:01)
[2022-09-03] MEDS: LEVOTHYROXINE NA 25 MCG TABLET (FP) PO SCH (06:11)
[2022-09-03] MEDS: hydrOXYzine PAMOATE 25 MG CAPSULE (FP) PO PRN ×2 (06:11→21:06)
[2022-09-03] MEDS: NICOTINE 10 MG CARTRIDGE (INHALER) IH PRN ×3 (06:12→16:31)
[2022-09-03] MEDS: INSULIN SLIDING SCALE (NOVOLOG) 1 VIAL SQ SCH ×4 (06:12→21:57)
[2022-09-03] MEDS: INSULIN (NOVOLOG) ASPART 100 UNITS/ML 10ML VIAL SQ SCH ×3 (07:04→16:43)
[2022-09-03] MEDS ORDERED: ARIPiprazole 5 MG TABLET ONE (09:11)
[2022-09-03] MEDS: BUPRENORPHINE/NALOXONE 2 MG/0.5 MG FILM PACKET SL SCH (10:25)
[2022-09-03] MEDS: IBUPROFEN 400 MG TABLET (FP) PO PRN (10:26)
[2022-09-03] MEDS: ARIPiprazole 10 MG TABLET PO SCH (10:27)
[2022-09-03] MEDS: PRENATAL VITAMINS W/ FOLIC ACID TABLET (FP) PO SCH (10:27)
[2022-09-03] MEDS: NICOTINE POLACRILEX 2 MG GUM BUC PRN (14:52)
[2022-09-03] MEDS: MIRTAZAPINE 15 MG TABLET (FP) PO SCH (21:04)
[2022-09-03] MEDS: THIAMINE HCL 100 MG TABLET (FP) PO SCH (21:04)
[2022-09-03] MEDS: MELATONIN 5 MG TABLETS PO SCH (21:04)
[2022-09-03] MEDS: INSULIN (LEVEMIR) 100 UNITS/ML UNITS SQ SCH (21:58)
[2022-09-03] MEDS ORDERED: BUPRENORPHINE/NALOXONE 2 MG/0.5 MG FILM PACKET SL PRN (22:00)
[2022-09-04] MEDS: hydrOXYzine PAMOATE 25 MG CAPSULE (FP) PO PRN ×2 (06:21→21:03)
[2022-09-04] MEDS: LEVOTHYROXINE NA 25 MCG TABLET (FP) PO SCH (06:21)
[2022-09-04] MEDS: NICOTINE 10 MG CARTRIDGE (INHALER) IH PRN ×4 (06:22→20:04)
[2022-09-04] MEDS: INSULIN SLIDING SCALE (NOVOLOG) 1 VIAL SQ SCH ×4 (07:07→21:01)
[2022-09-04] MEDS: INSULIN (NOVOLOG) ASPART 100 UNITS/ML 10ML VIAL SQ SCH ×3 (07:08→16:53)
[2022-09-04] MEDS: NICOTINE POLACRILEX 2 MG GUM BUC PRN ×2 (08:45→16:52)
[2022-09-04] MEDS ORDERED: ARIPiprazole 5 MG TABLET ONE (08:49)
[2022-09-04] MEDS: BUPRENORPHINE/NALOXONE 2 MG/0.5 MG FILM PACKET SL SCH (10:08)
[2022-09-04] MEDS: IBUPROFEN 400 MG TABLET (FP) PO PRN (10:08)
[2022-09-04] MEDS: ARIPiprazole 10 MG TABLET PO SCH (10:08)
[2022-09-04] MEDS: PRENATAL VITAMINS W/ FOLIC ACID TABLET (FP) PO SCH (10:08)
[2022-09-04] MEDS: INSULIN (LEVEMIR) 100 UNITS/ML UNITS SQ SCH (21:01)
[2022-09-04] MEDS: THIAMINE HCL 100 MG TABLET (FP) PO SCH (21:02)
[2022-09-04] MEDS: MIRTAZAPINE 15 MG TABLET (FP) PO SCH (21:02)
[2022-09-04] MEDS: MELATONIN 5 MG TABLETS PO SCH (21:03)
[2022-09-05] MEDS ORDERED: INSULIN (NOVOLOG) ASPART 100 UNITS/ML 10ML VIAL ONE ×3 (04:23→11:51)
[2022-09-05] MEDS: hydrOXYzine PAMOATE 25 MG CAPSULE (FP) PO PRN ×2 (06:23→21:41)
[2022-09-05] MEDS: NICOTINE 10 MG CARTRIDGE (INHALER) IH PRN ×3 (06:23→18:08)
[2022-09-05] MEDS: LEVOTHYROXINE NA 25 MCG TABLET (FP) PO SCH (06:24)
[2022-09-05] MEDS: INSULIN SLIDING SCALE (NOVOLOG) 1 VIAL SQ SCH ×4 (07:16→21:43)
[2022-09-05] MEDS: INSULIN (NOVOLOG) ASPART 100 UNITS/ML 10ML VIAL SQ SCH ×3 (07:43→16:42)
[2022-09-05] MEDS: BUPRENORPHINE/NALOXONE 2 MG/0.5 MG FILM PACKET SL SCH (09:52)
[2022-09-05] MEDS: NICOTINE POLACRILEX 2 MG GUM BUC PRN ×2 (09:53→14:45)
[2022-09-05] MEDS: PRENATAL VITAMINS W/ FOLIC ACID TABLET (FP) PO SCH (09:53)
[2022-09-05] MEDS: ARIPiprazole 10 MG TABLET PO SCH (09:53)
[2022-09-05] MEDS: IBUPROFEN 400 MG TABLET (FP) PO PRN (10:53)
[2022-09-05] MEDS: MELATONIN 5 MG TABLETS PO SCH (21:41)
[2022-09-05] MEDS: THIAMINE HCL 100 MG TABLET (FP) PO SCH (21:41)
[2022-09-05] MEDS: INSULIN (LEVEMIR) 100 UNITS/ML UNITS SQ SCH (21:43)
[2022-09-05] MEDS: MIRTAZAPINE 15 MG TABLET (FP) PO SCH (21:44)
[2022-09-06] MEDS: hydrOXYzine PAMOATE 25 MG CAPSULE (FP) PO PRN ×2 (06:25→21:36)
[2022-09-06] MEDS: LEVOTHYROXINE NA 25 MCG TABLET (FP) PO SCH (06:25)
[2022-09-06] MEDS: INSULIN SLIDING SCALE (NOVOLOG) 1 VIAL SQ SCH ×4 (07:20→21:35)
[2022-09-06] MEDS: INSULIN (NOVOLOG) ASPART 100 UNITS/ML 10ML VIAL SQ SCH ×3 (07:21→16:42)
[2022-09-06] MEDS ORDERED: INSULIN (NOVOLOG) ASPART 100 UNITS/ML 10ML VIAL ONE (07:47)
[2022-09-06] MEDS ORDERED: ARIPiprazole 5 MG TABLET ONE (08:40)
[2022-09-06] MEDS: PRENATAL VITAMINS W/ FOLIC ACID TABLET (FP) PO SCH (10:10)
[2022-09-06] MEDS: ARIPiprazole 10 MG TABLET PO SCH (10:10)
[2022-09-06] MEDS: BUPRENORPHINE/NALOXONE 2 MG/0.5 MG FILM PACKET SL SCH (10:11)
[2022-09-06] MEDS: IBUPROFEN 400 MG TABLET (FP) PO PRN (10:13)
[2022-09-06] MEDS: NICOTINE POLACRILEX 2 MG GUM BUC PRN (10:49)
[2022-09-06] MEDS: NICOTINE 10 MG CARTRIDGE (INHALER) IH PRN ×3 (12:00→21:40)
[2022-09-06] MEDS ORDERED: INSULIN (LEVEMIR) 100 UNITS/ML UNITS SQ SCH (14:22)
[2022-09-06] MEDS: MIRTAZAPINE 15 MG TABLET (FP) PO SCH (21:35)
[2022-09-06] MEDS: MELATONIN 5 MG TABLETS PO SCH (21:36)
[2022-09-06] MEDS: THIAMINE HCL 100 MG TABLET (FP) PO SCH (21:36)
[2022-09-07] MEDS: LEVOTHYROXINE NA 25 MCG TABLET (FP) PO SCH (06:04)
[2022-09-07] MEDS: hydrOXYzine PAMOATE 25 MG CAPSULE (FP) PO PRN ×2 (06:04→21:44)
[2022-09-07] MEDS: NICOTINE 10 MG CARTRIDGE (INHALER) IH PRN ×4 (06:05→21:41)
[2022-09-07] MEDS: INSULIN SLIDING SCALE (NOVOLOG) 1 VIAL SQ SCH ×4 (06:05→21:43)
[2022-09-07] MEDS ORDERED: ARIPiprazole 5 MG TABLET ONE (08:35)
[2022-09-07] MEDS: BUPRENORPHINE/NALOXONE 2 MG/0.5 MG FILM PACKET SL SCH (09:39)
[2022-09-07] MEDS: ARIPiprazole 10 MG TABLET PO SCH (09:39)
[2022-09-07] MEDS: PRENATAL VITAMINS W/ FOLIC ACID TABLET (FP) PO SCH (09:39)
[2022-09-07] MEDS ORDERED: INSULIN (NOVOLOG) ASPART 100 UNITS/ML 10ML VIAL ONE ×3 (11:59→23:20)
[2022-09-07] MEDS ORDERED: INSULIN (LEVEMIR) 100 UNITS/ML UNITS SQ SCH (12:42)
[2022-09-07] MEDS: NICOTINE POLACRILEX 2 MG GUM BUC PRN (13:03)
[2022-09-07] MEDS: MELATONIN 5 MG TABLETS PO SCH (21:41)
[2022-09-07] MEDS: THIAMINE HCL 100 MG TABLET (FP) PO SCH (21:41)
[2022-09-07] MEDS: MIRTAZAPINE 15 MG TABLET (FP) PO SCH (21:44)
[2022-09-08] MEDS: LEVOTHYROXINE NA 25 MCG TABLET (FP) PO SCH (06:30)
[2022-09-08] MEDS: hydrOXYzine PAMOATE 25 MG CAPSULE (FP) PO PRN (06:30)
[2022-09-08] MEDS: NICOTINE 10 MG CARTRIDGE (INHALER) IH PRN (06:31)
[2022-09-08] MEDS: INSULIN SLIDING SCALE (NOVOLOG) 1 VIAL SQ SCH (06:32)
[2022-09-08] MEDS ORDERED: INSULIN (NOVOLOG) ASPART 100 UNITS/ML 10ML VIAL ONE (06:32)
[2022-09-08 06:56] VITALS: BP 112/72; PULSE 105; RESP 20; TEMP 97.6
[2022-09-08] MEDS: BUPRENORPHINE/NALOXONE 2 MG/0.5 MG FILM PACKET SL SCH (09:10)
[2022-09-08] MEDS: ARIPiprazole 10 MG TABLET PO SCH (09:11)
[2022-09-08] MEDS: PRENATAL VITAMINS W/ FOLIC ACID TABLET (FP) PO SCH (09:11)
== END 2022-09-08 09:18 | disposition home or self-care (01) | DRG 772 ==
LOC: YASAS 13:49 → Y3E 13:50
PROVIDERS: ADMIT Allergy & Immunology; ATTEND Allergy & Immunology
PROC: HZ42ZZZ Group Counseling for Substance Abuse Treatment, Cognitive-Behavioral (ICD-10-PCS; principal; 2022-08-11)
DX: F10.20 Alcohol dependence, uncomplicated (principal); F14.20 Cocaine dependence, uncomplicated; F17.210 Nicotine dependence, cigarettes, uncomplicated; F31.9 Bipolar disorder, unspecified; E03.9 Hypothyroidism, unspecified; E11.59 Type 2 diabetes mellitus with other circulatory complications; Z79.4 Long term (current) use of insulin; Z56.0 Unemployment, unspecified; Z88.1 Allergy status to other antibiotic agents; Z91.013 Allergy to seafood; J45.20 Mild intermittent asthma, uncomplicated; Z59.00 Homelessness unspecified
CPT/HCPCS: 36415; 71046-TC-FY; 80048; 80053; 81003; 82010; 82803; 82962; 83605; 83735; 84484; 85025; 85027; 85610; 85730; 87086; 93005; 93010